=== PATIENT | female | born 1955 | race Caucasian/White ===

== ENCOUNTER 2017-06-12 08:01 | Day surgery (SDC) | payer BC ==
[2017-06-12] MEDS ORDERED: Lidocaine 2% 100 MG/5 ML Syringe IVPUSH ONE (08:02)
[2017-06-12] MEDS ORDERED: Propofol 200 MG/20 ML SDV IV ONE (08:02)
[2017-06-12] MEDS ORDERED: Sodium Chloride 0.9% 10 ML Syringe FLUSH PRN (08:45)
[2017-06-12] MEDS ORDERED: Lactated Ringers 1,000 ML IV SCH (08:45)
--- NOTE | 2017-06-12 09:05 | PCM.OPNOTE ---
- General Post-Op/Procedure Note Date of Surgery/Procedure: 06/12/17 Operative Procedure(s): C SCOPE WITH BX Findings: ascending colon polyp sigmoid diverticulosis Pre Op Diagnosis: change in bowel habits. Post-Op Diagnosis: ascending colon polyp. sigmoid diverticulosis Anesthesia Technique: MAC Primary Surgeon: Marc Lee Anesthesia Provider: Lilo Bonner Pathology: ascending colon polyp Complications: None Condition: Good Free Text/Narrative:: see dictation
--- NOTE | 2017-06-12 09:59 | PCM.OPNOTE ---
- General Post-Op/Procedure Note Date of Surgery/Procedure: 06/12/17 Operative Procedure(s): c scope with bx Findings: transverse colon polyp, descending colon polyp, sigmoid colon Pre Op Diagnosis: hx of colon polyp Post-Op Diagnosis: transverse colon polyp, descending colon polyp, sigmoid colon Primary Surgeon: Marc Lee Anesthesia Provider: Lilo Bonner Pathology: transverse colon polyp, descending colon polyp, sigmoid colon EBL in mLs: 0 Complications: None Condition: Good Free Text/Narrative:: see dictation
[2017-06-12 10:34] VITALS: BP 137/77
--- NOTE | 2017-06-12 13:58 | OR ---
DATE OF OPERATION: 06/12/2017 SURGEON: Marc Lee MD PROCEDURE PERFORMED: Colonoscopy with hot loop and cold forceps biopsy. PREOPERATIVE DIAGNOSIS: History of colon polyps with some low-grade dysplasia. POSTOPERATIVE DIAGNOSIS: Transverse colon polyp, descending colon polyp, and sigmoid colon polyp. INDICATIONS FOR PROCEDURE: This is a 61-year-old white female with the above- mentioned history. She was offered and due for a followup colonoscopy at this time. DESCRIPTION OF PROCEDURE: After an excellent IV sedation was administered, digital rectal exam was performed. No marked abnormality was noted. Flexible colonoscope was inserted and advanced to the cecum. The prep was excellent. The following findings were noted. Ascending colon, unremarkable. Transverse colon, a small polypoid lesion biopsied with cold biopsy forceps. Descending colon, sessile appearing lesion, biopsied with the hot loop snare and sent for permanent. Sigmoid colon, small pedunculated polyp biopsied with cold biopsy forceps and sent for permanent. Rectum and anus unremarkable. Colon was deflated. Scope was removed. Results by letter. /[id number] /MODL
== END 2017-06-12 10:37 | disposition home or self-care (01) ==
LOC: FB.SDS 08:01
PROVIDERS: ATTEND Surgery
DX: Z09 Encounter for follow-up examination after completed treatment for conditions other than malignant neoplasm (principal); K63.5 Polyp of colon; D12.5 Benign neoplasm of sigmoid colon; N39.46 Mixed incontinence; L82.1 Other seborrheic keratosis; I83.90 Asymptomatic varicose veins of unspecified lower extremity; J45.909 Unspecified asthma, uncomplicated; E78.5 Hyperlipidemia, unspecified; G47.00 Insomnia, unspecified; Z79.899 Other long term (current) drug therapy; Z79.51 Long term (current) use of inhaled steroids; Z88.1 Allergy status to other antibiotic agents; Z86.010 Personal history of colon polyps
CPT/HCPCS: 88305; J2704; J7120

== ENCOUNTER 2018-06-25 06:43 | Day surgery (SDC) | payer BC ==
[2018-06-25] MEDS ORDERED: Propofol 200 MG/20 ML SDV IV ONE (06:44)
[2018-06-25] MEDS ORDERED: Sodium Chloride 0.9% 10 ML Syringe FLUSH PRN (06:45)
[2018-06-25] MEDS ORDERED: Lactated Ringers 1,000 ML IV SCH (06:45)
--- NOTE | 2018-06-25 08:25 | PCM.OPNOTE ---
- General Post-Op/Procedure Note Date of Surgery/Procedure: 06/25/18 Operative Procedure(s): c scope with bx Findings: rectal polyps x4 hyperplasia Pre Op Diagnosis: screening Post-Op Diagnosis: rectal polyps x4 hyperplasia Anesthesia Technique: MAC Primary Surgeon: Marc Lee Anesthesia Provider: Priyanka Ness Pathology: rectal polyps x4 hyperplasia Complications: None Condition: Good Free Text/Narrative:: see dictation
--- NOTE | 2018-06-25 08:48 | OR ---
DATE OF OPERATION: 06/25/2018 SURGEON: Marc Lee MD PROCEDURE PERFORMED: Colonoscopy with cold forceps biopsy. PREOPERATIVE DIAGNOSIS: Need for screening colonoscope. POSTOPERATIVE DIAGNOSIS: Hyperplastic polyps of the rectum x4. INDICATIONS FOR PROCEDURE: This is sa 62-year-old white female, who presents for followup colonoscopy. DESCRIPTION OF PROCEDURE: After an excellent IV sedation was administered, digital rectal exam was performed. No marked abnormality was noted. The flexible colonoscope was inserted and advanced to the cecum without difficulty. Prep was excellent. The following findings were noted: Ascending colon, unremarkable. Transverse colon, unremarkable. Descending colon, unremarkable. Sigmoid, unremarkable. Rectum, several hyperplastic-appearing polyps were encountered, biopsied, and submitted in one container. The colon was deflated. Scope was removed. The patient tolerated the procedure well and was taken to recovery in good condition. /[id number] [id number]
--- NOTE | 2018-06-25 09:16 | PREOP ---
ADMISSION DATE: 06/25/2018 CHIEF COMPLAINT: Colon cancer screening. HISTORY OF PRESENT ILLNESS: This is a 62-year-old white female, who presents for screening colonoscopy. She is without complaints. SOCIAL HISTORY: The patient does not smoke. Does have an occasional beer during the week. ALLERGIES: She has an allergy to Azithromycin. CURRENT MEDICATIONS: 1. Cortisporin otic solution. 2. Lipitor 20 mg a day. 3. Desyrel 100 mg at bedtime. 4. Singulair 10 mg daily. 5. Flonase 50 mcg spray in each nostril once daily. 6. Symbicort 160/4.5 mcg per puff inhaler. 7. Albuterol inhaler. 8. JointFlex. 9. Zyrtec, she takes on a p.r.n. basis. PAST MEDICAL HISTORY: Significant for asthma, allergies, hyperlipidemia, insomnia, and osteoarthritis. PAST SURGICAL HISTORY: Significant for total knee on the right, arthroscopy on the right knee, carpal tunnel release bilaterally, hysterectomy, shoulder surgery, and sinus surgery. FAMILY HISTORY: Noncontributory with regard to colon cancer or colon disease. REVIEW OF SYSTEMS: The patient denies any HEENT, cardiovascular, pulmonary, GI, genitourinary, musculoskeletal, or neurologic issues of note. PHYSICAL EXAMINATION: GENERAL: This is a well-developed, well-nourished female, in no acute distress. VITAL SIGNS: Stable. She is afebrile. HEENT: Grossly within normal limits. LUNGS: Clear to auscultation. HEART: Regular rate and rhythm. ABDOMEN: Soft and nontender. ASSESSMENT: Colon cancer screening. PLAN/INFORMED CONSENT: C-scope. Procedure and risks explained to the patient to include bleeding, perforation, and infection. The patient expresses understanding and she asked us to proceed. /[id number] /MODL
[2018-06-25 11:38] VITALS: BP 118/76
== END 2018-06-25 09:30 | disposition home or self-care (01) ==
LOC: FB.SDS 06:43
PROVIDERS: ATTEND Surgery
DX: Z12.11 Encounter for screening for malignant neoplasm of colon (principal); K62.1 Rectal polyp; J45.909 Unspecified asthma, uncomplicated; F41.9 Anxiety disorder, unspecified; E78.5 Hyperlipidemia, unspecified; M19.90 Unspecified osteoarthritis, unspecified site; Z79.899 Other long term (current) drug therapy; Z88.1 Allergy status to other antibiotic agents
CPT/HCPCS: 88305; J2704; J7120